=== PATIENT | female | born 1945 | race Caucasian/White ===

== ENCOUNTER 2022-05-26 10:12 | Emergency (ER) | payer SELFPAY ==
[~2022-05-26] VITALS: Ht 162.6 cm; Wt 55.0 kg
[2022-05-26] MEDS ORDERED: ACETAMINOPHEN WITH CODEINE 300/30MG TABLET PO STA (10:46)
[2022-05-26] MEDS ORDERED: BACITRACIN ZINC OINT UDPKT TOP ONE (11:00)
[2022-05-26 11:24] VITALS: BP 150/72
[2022-05-26] MEDS ORDERED: LIDOCAINE HCL/PF 1% 10 MG/ML 5ML VIAL INFIL ONE (12:00)
[2022-05-26] MEDS ORDERED: BO1 TP (13:28)
[2022-05-26] MEDS ORDERED: HYDR-4001 PO (13:28)
== END 2022-05-26 14:29 | disposition home or self-care (01) ==
LOC: ER 10:12
DX: S52.591A Other fractures of lower end of right radius, initial encounter for closed fracture (principal); S52.611A Displaced fracture of right ulna styloid process, initial encounter for closed fracture; S00.83XA Contusion of other part of head, initial encounter; S00.01XA Abrasion of scalp, initial encounter; V03.10XA Pedestrian on foot injured in collision with car, pick-up truck or van in traffic accident, initial encounter; Y93.89 Activity, other specified; Y92.410 Unspecified street and highway as the place of occurrence of the external cause
CPT/HCPCS: 29125; 70450; 73070; 73090; 73100; 73110; 99284; J3490; Z7610; A4565